=== PATIENT | male | born 1960 | race Caucasian/White ===

== ENCOUNTER 2017-09-04 09:19 | Inpatient (IN) | payer BC, OTHER ==
[~2017-09-04] VITALS: Ht 182.9 cm; Wt 8.0 kg
[2017-09-04] MEDS ORDERED: SODIUM CHLORIDE 0.9% 1,000 ML IV ONE ×2 (09:48)
[2017-09-04] MEDS ORDERED: DIPHENOXYLATE W/ATROPINE 2.5 MG TAB PO ONE (10:00)
[2017-09-04] MEDS ORDERED: ONDANSETRON HCL 4 MG/2 ML VIAL IV ONE (10:00)
[2017-09-04] MEDS ORDERED: NALBUPHINE HCL 10 MG/1ml INJECTION IV ONE (10:00)
[2017-09-04 10:31] LABS: Basophils # (auto) 0 uL; Basophils % (auto) 0.3 % (0.0-2.0); Eosinophils # (auto) 0.1 uL; Eosinophils % (auto) 0.6 % (0.0-7.0); Hematocrit 47.1 % (41.0-53.0); Hemoglobin 15.5 g/dL (13.5-17.5); Mean Corpuscular Hemoglobin 28.7 pg (28.0-32.0); Mean Corpuscular Volume 87.2 fL (80.0-100.0); Monocytes # (auto) 0.9 uL; Monocytes % (auto) 7.6 % (0.0-12.0); Neutrophils # (auto) 8.6 uL; Neutrophils % (auto) 74.5 % (37.0-80.0); Nucleated Red Blood Cells % 0.1 %; Platelet Count (auto) 193 10^3/uL (140-450); Red Cell Distribution Width 15.7 % (11.8-14.3); White Blood Cell 11.5 10^3/uL (4.4-10.8)
[2017-09-04 10:32] LABS: Albumin 4.2 g/dL (3.4-5.0); BUN/Creatinine Ratio 17.3; Bilirubin, Total 0.5 mg/dL (0.2-1.0); Calcium 8.8 mg/dL (8.5-10.1); Lipase 150 U/L (73-393); Potassium 3.5 mmol/L (3.5-5.1)
[2017-09-04 10:36] LABS: INR 0.94 (0.9-1.15); Partial Thromboplastin Time 27.8 sec (22.64-33.71); Prothrombin Time 10.2 sec (9.37-12.3)
[2017-09-04] MEDS ORDERED: metroNIDAZOLE 500MG/100ML 100 ML IV ONE (11:30)
[2017-09-04] MEDS ORDERED: PIPERACILLIN-TAZOB 3.375GM 50 ML IV ONE (11:30)
[2017-09-04] MEDS ORDERED: PANTOPRAZOLE 40 MG/10 ML VIAL IV ONE (13:30)
[2017-09-04] MEDS ORDERED: NITROGLYCERIN 0.4 MG SL TAB SL PRN (13:30)
[2017-09-04] MEDS ORDERED: HYDROcodone-ACET 5/325MG TAB PO PRN (13:30)
[2017-09-04] MEDS ORDERED: MORPHINE SULF INJ 2 MG/ML SYRINGE 1ML IV PRN ×2 (13:30)
[2017-09-04] MEDS: SODIUM CHLORIDE 0.9% 1,000 ML IV SCH (13:51)
[2017-09-04 13:58] LABS: Urine Bacteria NONE SEEN /hpf (None Seen); Urine Blood Negative /uL (Negative); Urine Mucus FEW (None Seen); Urine Specific Gravity 1.026 (1.001-1.035); Urine WBC 1 /hpf (0 - 3)
[2017-09-04] MEDS: metroNIDAZOLE 500 MG TAB PO SCH ×2 (14:19→22:11)
[2017-09-04] MEDS: FLORASTOR (S. BOULARDII) 250 MG CAP PO SCH (14:19)
[2017-09-04] MEDS: ONDANSETRON HCL 4 MG/2 ML VIAL IV PRN ×2 (15:10→22:12)
[2017-09-04] MEDS ORDERED: GOLYTELY 4L KIT PO ONE (15:15)
[2017-09-04] MEDS ORDERED: ACETAMINOPHEN 500 MG TAB PO ONE (15:30)
[2017-09-04] MEDS ORDERED: ACETAMINOPHEN 500 MG TAB PO PRN (15:30)
[2017-09-04 16:23] VITALS: BP 143/77
[2017-09-04] MEDS ORDERED: metroNIDAZOLE 500MG/100ML 100 ML IV SCH (18:00)
[2017-09-04] MEDS ORDERED: ATOR20TA PO (18:53)
[2017-09-04] MEDS ORDERED: ALEN70TA2 PO (18:53)
[2017-09-04] MEDS ORDERED: ASPI81TA27 PO (18:53)
[2017-09-04 22:13] VITALS: BP 148/79
[2017-09-04 22:35] VITALS: BP 148/79
[2017-09-05] MEDS: SODIUM CHLORIDE 0.9% 1,000 ML IV SCH ×3 (00:11→12:58)
[2017-09-05 05:26] VITALS: BP 141/78
[2017-09-05] MEDS ORDERED: GOLYTELY 4L KIT PO ONE (06:00)
[2017-09-05] MEDS: metroNIDAZOLE 500 MG TAB PO SCH ×3 (06:08→21:51)
[2017-09-05] MEDS: ONDANSETRON HCL 4 MG/2 ML VIAL IV PRN (06:08)
[2017-09-05 07:29] LABS: Basophils # (auto) 0 uL; Basophils % (auto) 0.7 % (0.0-2.0); Eosinophils # (auto) 0.1 uL; Eosinophils % (auto) 1.1 % (0.0-7.0); Hemoglobin 13.7 g/dL (13.5-17.5); Lymphocytes # (auto) 1.5 uL; Mean Corpuscular Hemoglobin 28.5 pg (28.0-32.0); Mean Corpuscular Hgb Conc. 32.6 g/dL (32.0-36.0); Mean Corpuscular Volume 87.5 fL (80.0-100.0); Monocytes # (auto) 0.7 uL; Monocytes % (auto) 9.3 % (0.0-12.0); Neutrophils % (auto) 67.9 % (37.0-80.0); Nucleated Red Blood Cells % 0.1 %; Platelet Count (auto) 167 10^3/uL (140-450); Red Cell Distribution Width 15.6 % (11.8-14.3); White Blood Cell 7.3 10^3/uL (4.4-10.8)
[2017-09-05 08:00] VITALS: BP 117/64
[2017-09-05 08:06] LABS: Albumin 3.3 g/dL (3.4-5.0); BUN/Creatinine Ratio 11.1; Bilirubin, Total 0.6 mg/dL (0.2-1.0); Calcium 7.6 mg/dL (8.5-10.1); Magnesium 2.1 mg/dL (1.6-2.6); Potassium 3.4 mmol/L (3.5-5.1); Total Protein 6.6 g/dL (6.4-8.2)
[2017-09-05] MEDS ORDERED: diphenhdrAMINE HCL 50 MG/1 ML VL ONE (08:20)
[2017-09-05] MEDS ORDERED: SODIUM CHLORIDE LOCK 10 ML ONE (08:20)
[2017-09-05 09:00] VITALS: BP 117/64
[2017-09-05] MEDS: FLORASTOR (S. BOULARDII) 250 MG CAP PO SCH (09:34)
[2017-09-05] MEDS ORDERED: PANTOPRAZOLE 40 MG/10 ML VIAL IV SCH (10:00)
[2017-09-05] MEDS: fentaNYL CITRATE 100 MCG/2 ML VL ONE ×3 (11:13→11:21)
[2017-09-05] MEDS: MIDAZOLAM HCL 5 MG/ML-1ML VIAL ONE ×3 (11:13→11:21)
[2017-09-05] MEDS ORDERED: POTASSIUM CHL 20 Meq TABLET PO ONE (12:00)
[2017-09-05 16:39] VITALS: BP 126/62
[2017-09-05 22:00] VITALS: BP 130/70
[2017-09-06] MEDS: SODIUM CHLORIDE 0.9% 1,000 ML IV SCH (04:29)
[2017-09-06 05:00] VITALS: BP 114/67
[2017-09-06] MEDS: metroNIDAZOLE 500 MG TAB PO SCH (06:07)
[2017-09-06 08:51] VITALS: BP 131/62
[2017-09-06] MEDS: FLORASTOR (S. BOULARDII) 250 MG CAP PO SCH (10:07)
[2017-09-06 11:25] VITALS: BP 149/74
== END 2017-09-06 11:50 | disposition home or self-care (01) | DRG 392 ==
LOC: ER 09:19 → OVERFLOW 09:20 → WEST WING 15:42
PROVIDERS: ADMIT Internal Medicine; ATTEND Internal Medicine
PROC: 5A09357 Assistance with Respiratory Ventilation, Less than 24 Consecutive Hours, Continuous Positive Airway Pressure (ICD-10-PCS; 2017-09-04)
PROC: 0DBL8ZX Excision of Transverse Colon, Via Natural or Artificial Opening Endoscopic, Diagnostic (ICD-10-PCS; 2017-09-05)
PROC: 5A09357 Assistance with Respiratory Ventilation, Less than 24 Consecutive Hours, Continuous Positive Airway Pressure (ICD-10-PCS; 2017-09-05)
PROC: 0DBG8ZX Excision of Left Large Intestine, Via Natural or Artificial Opening Endoscopic, Diagnostic (ICD-10-PCS; principal; 2017-09-05 11:10)
DX: A08.4 Viral intestinal infection, unspecified (principal); E66.9 Obesity, unspecified; Z68.1 Body mass index [BMI] 19.9 or less, adult; E78.00 Pure hypercholesterolemia, unspecified; E78.5 Hyperlipidemia, unspecified; I70.8 Atherosclerosis of other arteries; K21.9 Gastro-esophageal reflux disease without esophagitis; N20.0 Calculus of kidney; Z79.82 Long term (current) use of aspirin; Z79.83 Long term (current) use of bisphosphonates; Z79.899 Other long term (current) drug therapy; Z88.2 Allergy status to sulfonamides
CPT/HCPCS: 36415; 45380; 71046; 74176; 80053; 81001; 82150; 83605; 83690; 83735; 83880; 84484; 85025; 85610; 85730; 87040; 87045; 87493; 87899; 93005; 94660; 96361; 96365; 96375; C9113; J2250; J2405; J2543; J3490